=== PATIENT | male | born 1980 | race Caucasian/White ===

== ENCOUNTER 2019-06-18 22:05 | Outpatient (REF) | payer OTHER, SELFPAY ==
[2019-06-18 23:02] LABS: ALT 31 U/L (12-78); AST 18 U/L (15-37); Alkaline Phosphatase 57 U/L (46-116); Anion Gap 11.2 mmol/L (3-11); BUN 11 mg/dL (7-18); Bilirubin, Total 0.5 mg/dL (0.2-1.0); CO2 25.8 mmol/L (21.0-32.0); CREATININE 0.94 mg/dL (0.70-1.30); Calcium 8.7 mg/dL (8.5-10.1); Calculated LDL 121 mg/dL; Chloride 104 mmol/L (98-107); Cholesterol 227 mg/dL (50-200); Glucose 96 mg/dL (70-100); HDL Cholesterol 38 mg/dL (40-60); Potassium 4.4 mmol/L (3.5-5.1); Sodium 141 mmol/L (136-145); Total Protein 7.2 g/dL (6.4-8.2); Triglyceride 342 mg/dL (30-150)
== END 2019-06-18 22:25 ==
LOC: NCHCN 22:05
PROVIDERS: PCP Family Medicine; Visit Provider Family Medicine
DX: Z00.00 Encounter for general adult medical examination without abnormal findings (principal); Z13.220 Encounter for screening for lipoid disorders; Z13.228 Encounter for screening for other metabolic disorders
CPT/HCPCS: 80053; 80061; 83721

== ENCOUNTER 2021-02-28 03:33 | Outpatient (CLI) | payer OTHER, SELFPAY ==
[2021-02-28 17:57] LABS: ALT 36 U/L (16-63); AST 17 U/L (15-37); Albumin 4.2 g/dL (3.4-5.0); Alkaline Phosphatase 75 U/L (46-116); Bilirubin, Direct 0.1 mg/dL (0.0-0.2); Bilirubin, Total 0.4 mg/dL (0.2-1.0); Total Protein 7.6 g/dL (6.4-8.2)
== END 2021-02-28 03:34 | disposition home or self-care (01) ==
LOC: LBO 03:33
PROVIDERS: PCP Family Medicine; Visit Provider Family Medicine
DX: B35.1 Tinea unguium (principal)
CPT/HCPCS: 36415; 80076

== ENCOUNTER 2022-09-28 01:29 | Outpatient (CLI) | payer OTHER, SELFPAY ==
[2022-09-28 07:52] LABS: Abs Immature Grans 0.02 10^3/uL (0.0-0.06); Absolute Basophil Count 0.02 10^3/uL (0.0-0.2); Absolute Lymphocyte Count 2.38 10^3/uL (1.2-3.4); Basophils % 0.3; Eosinophils % 1.4; HCT 43.9 % (40.0-50.0); HGB 14.7 g/dL (13.5-17.5); Immature Grans % 0.3; Lymphocytes % 33.9; MCH 29.3 pg (27.0-33.0); MCHC 33.5 % (32.0-36.0); MCV 88 fL (80-95); MPV 8.8 fL (8.0-11.0); Monocytes % 8.5; Neutrophils % 55.6; Platelet Count 266 10^3/uL (130-400); RBC 5.02 10^6/uL (4.36-5.78); RDW 12.5 % (11.8-14.1); RDW-SD 40.3 fL; WBC 7.02 10^3/uL (4.4-10.8)
[2022-09-28 08:32] LABS: ALT 48 U/L (16-63); AST 26 U/L (15-37); Alkaline Phosphatase 56 U/L (46-116); Anion Gap 5.7 mmol/L (3-11); BUN 14 mg/dL (7-18); Bilirubin, Total 0.5 mg/dL (0.2-1.0); CO2 30.3 mmol/L (21.0-32.0); CREATININE 1.3 mg/dL (0.70-1.30); Calcium 9.4 mg/dL (8.5-10.1); Calculated LDL 144 mg/dL (<100); Chloride 98 mmol/L (98-107); Cholesterol 231 mg/dL (<200); Estimated GFR 70.34 (mL/min/1.73m2); Glucose 126 mg/dL (74-106); HDL Cholesterol 51 mg/dL (40-60); Potassium 4.2 mmol/L (3.5-5.1); Sodium 134 mmol/L (136-145); Total Protein 7.7 g/dL (6.4-8.2); Triglyceride 182 mg/dL (<150)
== END 2022-09-28 01:30 | disposition home or self-care (01) ==
LOC: LBO 01:29
PROVIDERS: Visit Provider Family Medicine
DX: K21.9 Gastro-esophageal reflux disease without esophagitis (principal); R07.89 Other chest pain
CPT/HCPCS: 36415; 80053; 80061; 85025

== ENCOUNTER 2022-10-09 09:06 | Outpatient (CLI) | payer OTHER, SELFPAY ==
--- NOTE | 2022-10-09 09:00 | RT.EKG_ITS ---
APPROVED REPORT Exam: Resting ECG Reason for Exam: atypical chest pain Patient Location: O HR:64 bpm ECG Measurements Heart Rate 64 AXIS HI 139 P 44 QRSd 88 QRS 55 QT 356 T 34 QTc 368 Conclusion Sinus rhythm...normal P axis, V-rate 50- 99 Normal Electrocardiogram
== END 2022-10-09 09:07 | disposition home or self-care (01) ==
PROVIDERS: Visit Provider Family Medicine
DX: R07.89 Other chest pain (principal)
CPT/HCPCS: 93005; 93010

== ENCOUNTER 2023-01-02 11:13 | Outpatient (REF) | payer OTHER, SELFPAY ==
[2023-01-02 15:07] LABS: TSH (W/Ref FT4) 1.18 uIU/mL (0.36-3.74)
== END 2023-01-02 11:14 | disposition home or self-care (01) ==
LOC: NCHCN 11:13
PROVIDERS: Visit Provider Family Medicine
DX: Z00.00 Encounter for general adult medical examination without abnormal findings (principal); F41.8 Other specified anxiety disorders; F90.8 Attention-deficit hyperactivity disorder, other type
CPT/HCPCS: 84443

== ENCOUNTER 2023-02-18 11:48 | Outpatient (REF) | payer OTHER, SELFPAY ==
--- NOTE | 2023-02-18 09:30 | SKI_PTH ---
PATIENT: Herb Moreno LOC: [facility] U#:[id number] AGE/SX: 42/M ROOM: RE02/18/[address]: Aaron Burrows : 1980 BED: DIS: 02/18/2023 SPEC #: [id number] RECD: 02/18/23 18:07 STATUS: GEORGE JAVED #: [id number] HEENA: 02/18/23 09:[address]: Aaron Burrows DEPT: Surgical Specimen RECD BY: Gardenia Wright Tissues: 1 - SKIN BIOPSY(SHAVE/PUNCH) Procedures: SKIN LEVEL 4 Comments: [id number]
== END 2023-02-18 11:49 | disposition home or self-care (01) ==
LOC: NCHCN 11:48
PROVIDERS: PCP Family Medicine; Visit Provider Family Medicine
DX: D22.39 Melanocytic nevi of other parts of face (principal)
CPT/HCPCS: 88305

== ENCOUNTER 2025-02-10 12:07 | Outpatient (REF) | payer BC, SELFPAY ==
[2025-02-10 16:40] LABS: ALT 37 U/L (16-63); AST 16 U/L (15-37); Albumin 4.3 g/dL (3.4-5.0); Alkaline Phosphatase 56 U/L (46-116); Anion Gap 10.7 mmol/L (3-11); BUN 21 mg/dL (7-18); Bilirubin, Total 0.2 mg/dL (0.2-1.0); CO2 26.3 mmol/L (21.0-32.0); CREATININE 1.3 mg/dL (0.70-1.30); Calcium 9.5 mg/dL (8.5-10.1); Calculated LDL 151 mg/dL (<100); Chloride 107 mmol/L (98-107); Cholesterol 229 mg/dL (<200); Estimated GFR 69.47 (mL/min/1.73m2); Glucose 111 mg/dL (74-106); HDL Cholesterol 44 mg/dL (>or=40); Sodium 144 mmol/L (136-145); Total Protein 7.2 g/dL (6.4-8.2); Triglyceride 173 mg/dL (<150)
== END 2025-02-10 12:08 | disposition home or self-care (01) ==
LOC: NCHCN 12:07
PROVIDERS: PCP Family Medicine; Visit Provider Family Medicine
DX: E78.5 Hyperlipidemia, unspecified (principal)
CPT/HCPCS: 80053; 80061